=== PATIENT | male | born 1955 | race Caucasian/White ===

== ENCOUNTER 2016-05-01 05:55 | Day surgery (SDC) | payer BC ==
--- NOTE | ~2016-05-01 | EGD ---
EGD REPORT [facility] [address] [place] [address] NAME: ROBBY ARREDONDO : [birth year] STATUS : REG [facility]#: [id number] AGE: 60 ADM/REG DATE : 05/01/16 MR#: [id number] REPORT SERV DATE: 05/01/16 DICTATED BY: MAGDALENO CAMPOS DATE: 05/01/16 REPORT STATUS : Draft TRANSCRIBED BY: [facility] DATE: 05/01/16 Endoscopy Center Patient Name: Robby Arredondo Date of : 1955 Attending MD: BRIAN CAMPOS MD Procedure Date No Time: 05/01/2016 Procedure: Upper GI endoscopy Indications: Dysphagia, Gastro-esophageal reflux disease Referring MD: LIZETTE BONILLA II Medicines: See the Anesthesia note for documentation of the administered medications Complications: No immediate complications. Estimated blood loss: Minimal. Procedure: Pre-Anesthesia Assessment: - ASA Grade Assessment: III - A patient with severe systemic disease. - Prior to the procedure, a History and Physical was performed, and patient medications and allergies were reviewed. The patient's tolerance of previous anesthesia was also reviewed. The risks and benefits of the procedure and the sedation options and risks were discussed with the patient. All questions were answered, and informed consent was obtained. Prior Anticoagulants: The patient has taken Xarelto (rivaroxaban), last dose was 3 days prior to procedure. After reviewing the risks and benefits, the patient was deemed in satisfactory condition to undergo the procedure. After obtaining informed consent, the endoscope was passed under direct vision. Throughout the procedure, the patient's blood pressure, pulse, and oxygen saturations were monitored continuously. The GIF [id number] was introduced through the mouth, and advanced to the third part of duodenum. The upper GI endoscopy was accomplished without difficulty. The patient tolerated the procedure well. Findings: The examined duodenum was normal. Diffuse moderate inflammation characterized by congestion (edema) and erythema was found in the gastric antrum. Biopsies were taken with a cold forceps for histology. A single 3 mm sessile polyp with no stigmata of recent bleeding was found in the stomach. The polyp was removed with a cold biopsy forceps. Resection and retrieval were complete. No other significant abnormalities were identified in a careful EGD REPORT [address] [id number] NAME: ROBBY ARREDONDO : [birth year] STATUS : REG [facility]#: [id number] AGE: 60 ADM/REG DATE : 05/01/16 MR#: [id number] REPORT SERV DATE: 05/01/16 DICTATED BY: MAGDALENO CAMPOS DATE: 05/01/16 REPORT STATUS : Draft TRANSCRIBED BY: [employer] DATE: 05/01/16 examination of the stomach. The cardia and gastric fundus were normal on retroflexion. The Z-line was irregular and was found at the gastroesophageal junction. Biopsy with a cold forceps was performed for histology. A guidewire was placed and the scope was withdrawn. Dilation was performed with a Savary dilator with no resistance at 51 Fr and no resistance at 57 Fr. Impression: - Normal examined duodenum. - Gastritis. Biopsied. - A single gastric polyp. Resected and retrieved. - Z-line irregular, at the gastroesophageal junction. Biopsied. Dilated. Recommendation: - Patient has a contact number available for emergencies. The signs and symptoms of potential delayed complications were discussed with the patient. Return to normal activities tomorrow. Written discharge instructions were provided to the patient. - Regular diet. - Discharge patient to home. - Continue present medications. - Await pathology results. Procedure Code(s): --- Professional --- 33007, Esophagogastroduodenoscopy, flexible, transoral; with insertion of guide wire followed by passage of dilator(s) through esophagus over guide wire 95721, Esophagogastroduodenoscopy, flexible, transoral; with biopsy, single or multiple Diagnosis Code(s): --- Professional --- K29.70, Gastritis, unspecified, without bleeding K31.7, Polyp of stomach and duodenum K22.8, Other specified diseases of esophagus R13.10, Dysphagia, unspecified K21.9, Gastro-esophageal reflux disease without esophagitis CPT copyright 2013 [employer]. All rights reserved. The codes documented in this report are preliminary and upon power hair clipper review may be revised to meet current compliance requirements. BRIAN CAMPOS MD 05/01/2016 7:53 AM EGD REPORT [facility] [address] [place]. [address] NAME: ROBBY ARREDONDO : [birth year] STATUS : REG [facility] [place] [facility]#: [id number] AGE: 60 ADM/REG DATE : 05/01/16 MR#: [id number] REPORT SERV DATE: 05/01/16 DICTATED BY: MAGDALENO CAMPOS DATE: 05/01/16 REPORT STATUS : Draft TRANSCRIBED BY: [employer] DATE: 05/01/16 This report has been signed electronically. Number of Addenda: 0 Note Initiated On: 05/01/2016 7:35 AM Scope Withdrawal Time 0 hours 0 minutes 0 seconds [address] [place] [address]
--- NOTE | ~2016-05-01 | EGD ---
EGD REPORT [facility] [address] [place] [address] NAME: ROBBY ARREDONDO : [birth year] STATUS : REG [facility]#: [id number] AGE: 60 ADM/REG DATE : 05/01/16 MR#: [id number] REPORT SERV DATE: 05/01/16 DICTATED BY: MAGDALENO CAMPOS DATE: 05/01/16 REPORT STATUS : Draft [facility]ANSCRIBED BY: [facility] DATE: 05/01/16 Endoscopy Center Patient Name: Robby Arredondo Date of : 1955 Attending MD: BRIAN CAMPOS MD Procedure Date No Time: 05/01/2016 Procedure: Colonoscopy Indications: Heme positive stool, Last colonoscopy 10/31/13 Referring MD: LIZETTE BONILLA II Medicines: See the Anesthesia note for documentation of the administered medications Complications: No immediate complications. Estimated blood loss: None. Procedure: Pre-Anesthesia Assessment: - ASA Grade Assessment: III - A patient with severe systemic disease. - Prior to the procedure, a History and Physical was performed, and patient medications and allergies were reviewed. The patient's tolerance of previous anesthesia was also reviewed. The risks and benefits of the procedure and the sedation options and risks were discussed with the patient. All questions were answered, and informed consent was obtained. Prior Anticoagulants: The patient has taken Xarelto (rivaroxaban), last dose was 3 days prior to procedure. After reviewing the risks and benefits, the patient was deemed in satisfactory condition to undergo the procedure. After I obtained informed consent, the scope was passed under direct vision. Throughout the procedure, the patient's blood pressure, pulse, and oxygen saturations were monitored continuously. The PCF [id number] was introduced through the anus and advanced to the cecum, identified by appendiceal orifice and ileocecal valve. The ileocecal valve, appendiceal orifice and rectum were photographed. The entire colon was examined. The colonoscopy was performed without difficulty. The patient tolerated the procedure well. The quality of the bowel preparation was adequate. Findings: The perianal and digital rectal examinations were normal. A few medium-mouthed diverticula were found in the sigmoid colon and in the descending colon. Non-bleeding internal hemorrhoids were found during retroflexion and were Grade I (internal hemorrhoids that do not prolapse). No other significant abnormalities were identified in a careful EGD REPORT [address] [id number] NAME: ROBBY ARREDONDO : [birth year] STATUS : REG [facility]#: [id number] AGE: 60 ADM/REG DATE : 05/01/16 MR#: [id number] REPORT SERV DATE: 05/01/16 DICTATED BY: MAGDALENO CAMPOS DATE: 05/01/16 REPORT STATUS : Draft TRANSCRIBED BY: [employer] DATE: 05/01/16 examination of the remainder of the colon. Impression: - Diverticulosis in the sigmoid colon and in the descending colon. - Non-bleeding internal hemorrhoids. Recommendation: - Patient has a contact number available for emergencies. The signs and symptoms of potential delayed complications were discussed with the patient. Return to normal activities tomorrow. Written discharge instructions were provided to the patient. - High fiber diet indefinitely. - Discharge patient to home. - Continue present medications. - Repeat colonoscopy in 5 years for surveillance. - Please restart your Xarelto today Procedure Code(s): --- Professional --- 10332, Colonoscopy, flexible, proximal to splenic flexure; diagnostic, with or without collection of specimen(s) by brushing or washing, with or without colon decompression (separate procedure) Diagnosis Code(s): --- Professional --- K64.0, First degree hemorrhoids K57.30, Diverticulosis of large intestine without perforation or abscess without bleeding R19.5, Other fecal abnormalities CPT copyright 2013 [employer]. All rights reserved. The codes documented in this report are preliminary and upon cash posting representative review may be revised to meet current compliance requirements. BRIAN CAMPOS MD 05/01/2016 8:07 AM This report has been signed electronically. Number of Addenda: 0 Note Initiated On: 05/01/2016 7:32 AM Scope Withdrawal Time 0 hours 6 minutes 23 seconds [address] [place] [address]
[~2016-05-01 05:55] MED LIST: ACCUNEB INH; ADVAIR INH; ADVAIR250 INH; ALVESCO 160 MCG INH; ALVESCO INH; ALVESCO160 MCG INH; ASABAYER PO; ASTELIN NAS; ASTEPRO0.15 % NAS; ATEN25 PO; ATEN50 PO; ATV.5 PO; BETAPACE160 MG PO; BUM1 PO; C2 PO; CARDCD240 PO; CARTIA XT240 MG/24 PO; COMBIVENT INH; COUMADIN6 MG PO; COUMADIN7.5 MG PO; DILT-XR240 MG PO; DUONEB INH; FERROUS SULF324 MG PO; FLOMAX4 PO; JANTOVEN1 MG PO; JANTOVEN10 MG PO; JANTOVEN2 MG PO; JANTOVEN6 MG PO; JANTOVEN7.5 MG PO; KLOR-CON 1010 MEQ PO; KLOR-CON M2020 MEQ PO; L20 PO; LORTAB10 PO; LOVENOX1C SC; LOVENOX60 SC; METHIMAZOLE5 MG PO; NASACORTAQ NAS; NEUR600 PO; NEXIUM40 PO; NORCO1 TA1 PO; NORCO1 TA2 PO; P10 PO; POTASSIUM CHLORIDE; PROTONIX PO; PROVENTSOL INH; PULMICORT180 MCG INH; SINGULAIR1 PO; SPIRIVA INH; TAMBO50 PO; TAMBOCOR PO; TAMBOCOR150 MG PO; TAZTIA X1 PO; ULTRAM50 PO; VENTOLIN HFA INH; XARELTO20 MG PO; ZYRTEC ALLGY10 MG PO
== END 2016-05-01 23:59 | disposition home or self-care (01) ==
LOC: DMU 05:55
PROVIDERS: Internal Medicine Gastroenterology
PROC: 0DB68ZX Excision of Stomach, Via Natural or Artificial Opening Endoscopic, Diagnostic (ICD-10-PCS; 2016-05-01)
PROC: 0D748ZZ Dilation of Esophagogastric Junction, Via Natural or Artificial Opening Endoscopic (ICD-10-PCS; 2016-05-01)
PROC: 0DJD8ZZ Inspection of Lower Intestinal Tract, Via Natural or Artificial Opening Endoscopic (ICD-10-PCS; principal; 2016-05-01 07:00)
PROC: 0DB48ZX Excision of Esophagogastric Junction, Via Natural or Artificial Opening Endoscopic, Diagnostic (ICD-10-PCS; 2016-05-01 07:00)
DX: D13.1 Benign neoplasm of stomach (principal); G47.33 Obstructive sleep apnea (adult) (pediatric); E66.01 Morbid (severe) obesity due to excess calories; I48.91 Unspecified atrial fibrillation; J45.909 Unspecified asthma, uncomplicated; M19.90 Unspecified osteoarthritis, unspecified site; E03.9 Hypothyroidism, unspecified; D64.9 Anemia, unspecified; Z88.8 Allergy status to other drugs, medicaments and biological substances; Z88.0 Allergy status to penicillin; Z79.891 Long term (current) use of opiate analgesic; Z79.899 Other long term (current) drug therapy; Z86.718 Personal history of other venous thrombosis and embolism; Z98.890 Other specified postprocedural states; Z90.49 Acquired absence of other specified parts of digestive tract
CPT/HCPCS: 88305